=== PATIENT | male | born 1995 | race African-American/Black ===

== ENCOUNTER 2022-04-28 23:51 | Emergency (ER) | payer MEDICAID ==
[~2022-04-28] VITALS: Ht 172.7 cm; Wt 84.1 kg
[2022-04-28 23:54] VITALS: BP 127/89
== END 2022-04-29 00:07 | disposition left against medical advice (07) ==
LOC: EMS 23:59
DX: Z53.21 Procedure and treatment not carried out due to patient leaving prior to being seen by health care provider (principal)